=== PATIENT | male | born 1975 | race Caucasian/White ===

== ENCOUNTER 2016-06-22 11:43 | Emergency (ER) | payer SELFPAY | END 2016-06-22 14:26 | disposition home or self-care (01) | LOC: FER 11:43 | DX: J06.9 Acute upper respiratory infection, unspecified (principal); F17.210 Nicotine dependence, cigarettes, uncomplicated | CPT/HCPCS: 87450; 87804; 87899; 99283 ==

== ENCOUNTER 2016-07-13 18:00 | Emergency (ER) | payer SELFPAY | END 2016-07-13 19:28 | disposition left against medical advice (07) | LOC: FER 18:00 | DX: J02.9 Acute pharyngitis, unspecified (principal); H92.02 Otalgia, left ear; Z53.8 Procedure and treatment not carried out for other reasons | CPT/HCPCS: 87450 ==

== ENCOUNTER 2016-07-21 09:22 | Emergency (ER) | payer SELFPAY | END 2016-07-21 11:35 | disposition home or self-care (01) | LOC: FER 09:22 | DX: J40 Bronchitis, not specified as acute or chronic (principal); J32.9 Chronic sinusitis, unspecified; F17.210 Nicotine dependence, cigarettes, uncomplicated | CPT/HCPCS: 71020; 87804; 87899; 94640; J2930 ==

== ENCOUNTER 2016-09-29 18:14 | Emergency (ER) | payer SELFPAY | END 2016-09-29 19:57 | disposition home or self-care (01) | LOC: FER 18:14 | DX: S39.012A Strain of muscle, fascia and tendon of lower back, initial encounter (principal); M54.41 Lumbago with sciatica, right side; M51.9 Unspecified thoracic, thoracolumbar and lumbosacral intervertebral disc disorder; M19.90 Unspecified osteoarthritis, unspecified site; F17.210 Nicotine dependence, cigarettes, uncomplicated; X50.0XXA Overexertion from strenuous movement or load, initial encounter | CPT/HCPCS: 99283 ==

== ENCOUNTER 2016-10-09 01:57 | Emergency (ER) | payer SELFPAY ==
[2016-10-09 02:52] LABS: BASOPHIL 0.2 % (0-2); EOSINOPHIL 1.1 % (0-5); HCT 43.7 % (42.0-52.0); HGB 14.9 g/dl (13.2-18.0); LYMPHOCYTE 18.9 % (15-48); MCH 32.7 pg (25.0-31.0); MCHC 34.1 g/dL (32.0-36.0); MONOCYTE 9.2 % (0-12); MPV 9.8 fL (6.0-9.5); NEUTROPHIL 70.6 % (41-80); PLT 328 K/uL (150-400); RBC 4.55 M/uL (4.70-6.00); RDW 12.1 % (11.5-14.0)
[2016-10-09 03:13] LABS: POTASSIUM 3.8 mmol/L (3.5-5.1)
[2016-10-09 06:19] LABS: BILIRUBIN NEGATIVE (NEGATIVE); BLOOD NEGATIVE Ery/uL (NEGATIVE); CLARITY CLEAR (CLEAR); COLOR YELLOW (YELLOW); GLUCOSE (U) NORMAL (NORMAL); KETONE (U) NEGATIVE (NEGATIVE); LEUKOCYTES NEGATIVE Leu/uL (NEGATIVE); NITRITE NEGATIVE (NEGATIVE); PROTEIN NEGATIVE (NEGATIVE)
[2016-10-09 06:30] LABS: AMPHETAMINES POSITIVE (NEGATIVE); BARBITURATES NEGATIVE (NEGATIVE); BENZODIAZEPINES POSITIVE (NEGATIVE); COCAINE POSITIVE (NEGATIVE); MARIJUANA (THC) NEGATIVE (NEGATIVE); METHADONE NEGATIVE (NEGATIVE); TRICYCLIC ANTIDEPRESSANT NEGATIVE (NEGATIVE)
== END 2016-10-09 06:45 | disposition home or self-care (01) ==
LOC: FER 01:57
PROVIDERS: Emergency Medicine
DX: S22.088A Other fracture of T11-T12 vertebra, initial encounter for closed fracture (principal); R51 Headache; R42 Dizziness and giddiness; R06.02 Shortness of breath; M47.819 Spondylosis without myelopathy or radiculopathy, site unspecified; Z79.52 Long term (current) use of systemic steroids; V49.40XA Driver injured in collision with unspecified motor vehicles in traffic accident, initial encounter; Y92.410 Unspecified street and highway as the place of occurrence of the external cause
CPT/HCPCS: 36415; 70450; 71010; 72110; 72131; 72170; 80048; 80305; 81003; 85025; 93005; G0480; J2270